=== PATIENT | female | born 1960 | race Caucasian/White ===

== ENCOUNTER → 2016-11-08 | Outpatient (CLI) | payer BC ==
[2016-11-08 10:18] LABS: BASOPHILS # (AUTO) 0.07 10*3/UL; BASOPHILS % (AUTO) 0.9 % (0-1); EOSINOPHILS # (AUTO) 0.18 10*3/UL; EOSINOPHILS % (AUTO) 2.4 % (0-8); HEMATOCRIT 43.3 % (37.0-47.0); HEMOGLOBIN 14.6 g/dL (12.0-16.0); LYMPHOCYTES # (AUTO) 2.34 10*3/uL; MEAN CORPUSCULAR HEMOGLOBIN 30.1 PG (27-31); MEAN CORPUSCULAR HGB CONC 33.7 g/dL (33-37); MEAN CORPUSCULAR VOLUME 89.3 FL (81-99); MEAN PLATELET VOLUME 11.5 FL (7.4-12.2); MONOCYTES # (AUTO) 0.55 10*3/UL (0.3-0.8); MONOCYTES % (AUTO) 7.2 % (5-15); NEUTROPHILS # (AUTO) 4.49 10*3/UL; NEUTROPHILS % (AUTO) 58.8 % (50-80); RED BLOOD COUNT 4.85 10^6/uL (4.20-5.40)
[2016-11-08 10:23] LABS: PLATELET MORPHOLOGY COMMENT NORMAL MORPHOLOGY (NORM); RBC MORPHOLOGY COMMENT NORMAL MORPHOLOGY (NORM); WBC MORPHOLOGY COMMENT NORMAL MORPHOLOGY (NORM)
[2016-11-08 10:31] LABS: BLOOD UREA NITROGEN 16 mg/dL (7-22); BUN/CREATININE RATIO 17.77 (6-20); CALCIUM 9.1 mg/dL (8.7-10.7); CHOL/HDL RATIO 3.16 RATIO (0-4.0); EST GLOMERULAR FILTRATION > 60 (>60 ml/min/1.73m(2)); HDL CHOLESTEROL 50 mg/dL (40-150); SERUM ALBUMIN 3.9 g/dL (3.5-4.8); SERUM CHOLESTEROL 158 mg/dL (120-200)
== END ==
LOC: LAB 10:00
PROVIDERS: ATTEND Nurse Practitioner Family
DX: Z00.00 Encounter for general adult medical examination without abnormal findings (principal)
CPT/HCPCS: 36415; 80053; 80061; 84443; 85025